=== PATIENT | male | born 1965 | race African-American/Black ===

== ENCOUNTER 2016-11-17 18:50 | Inpatient (IN) | payer OTHER ==
[~2016-11-17] VITALS: Ht 185.4 cm; Wt 96.6 kg
--- NOTE | 2016-11-17 19:26 | PHYS DOC ---
Past Medical History Past Medical History: Hypertension Past Surgical History: Other Additional Past Surgical Histo: L SHOULDER Alcohol Use: Occasionally Drug Use: None Adult General Chief Complaint Chief Complaint: DIZZY/LIGHT HEADED HPI HPI Patient is a 51 year old male who presents with lightheadedness and some weakness. He states that he feels like he got overheated today he's been out in the heat with his [employer] truck and felt weak in the knees and felt unsteady on his feet states his symptoms started about 1: 30 pm today. He states he hasn't ate anything all day today because he just wasn 't hungry. He denies any headache, neck pain, chest pain, abdominal pain or vomiting. Review of Systems Review of Systems Constitutional: Denies fever or chills [] Eyes: Denies change in visual acuity, redness, or eye pain [] HENT: Denies nasal congestion or sore throat [] Respiratory: Denies cough or shortness of breath [] Cardiovascular: No additional information not addressed in HPI [] GI: Denies abdominal pain, nausea, vomiting, bloody stools or diarrhea [] : Denies dysuria or hematuria [] Musculoskeletal: Denies back pain or joint pain [] Integument: Denies rash or skin lesions [] Neurologic: Denies headache, focal weakness or sensory changes [] Endocrine: Denies polyuria or polydipsia [] Current Medications Current Medications Current Medications Medications (Trade) Dose Ordered Sig/Tree Start Time Stop Time Status Last Admin Dose Admin Ondansetron HCl (Zofran) 4 mg PRN Q8HRS PRN 11/18/16 00:00 11/18/16 23:59 UNV Sodium Chloride 1,000 ml @ 1,000 mls/hr 1X ONCE 11/17/16 21:45 11/17/16 22:44 DC 11/17/16 21:28 1,000 MLS/HR Allergies Allergies Allergies Coded Allergies Type Severity Reaction Last Updated Verified No Known Drug Allergies 11/17/16 No Physical Exam Physical Exam Constitutional: Well developed, well nourished, no acute distress, non-toxic appearance. [] HENT: Normocephalic, atraumatic, bilateral external ears normal, oropharynx moist, no oral exudates, nose normal. [] Eyes: PERRLA, EOMI, conjunctiva normal, no discharge. [] Neck: Normal range of motion, no tenderness, supple, no stridor. [] Cardiovascular:Heart rate regular rhythm, no murmur [] Lungs & Thorax: Bilateral breath sounds clear to auscultation [] Abdomen: Bowel sounds normal, soft, no tenderness, no masses, no pulsatile masses. [] Skin: Warm, dry, no erythema, no rash. [] Back: No tenderness, no CVA tenderness. [] Extremities: No tenderness, no cyanosis, no clubbing, ROM intact, no edema. [] Neurologic: Alert and oriented X 3, normal motor function, normal sensory function, no focal deficits noted, strength 5 out of 5 bilateral upper and lower extremities, finger-nose intact, no pronator drift, cranial nerves II through XII intact no Nystagmus. [] Psychologic: Affect normal, judgement normal, mood normal. [] Current Patient Data Vital Signs Vital Signs Date Time Temp Pulse Resp B/P (MAP) Pulse Ox O2 Delivery O2 Flow Rate FiO2 11/17/16 19:08 98.2 62 18 154/84 (107) 98 Room Air 98.2 Lab Values Laboratory Tests Test 11/17/16 19:05 11/17/16 19:45 11/17/16 19:51 Sodium Level 140 mmol/L (136-145) Potassium Level 3.6 mmol/L (3.5-5.1) Chloride Level 105 mmol/L (98-107) Carbon Dioxide Level 26 mmol/L (21-32) Anion Gap 9 (6-14) Blood Urea Nitrogen 15 mg/dL (8-26) Creatinine 0.9 mg/dL (0.7-1.3) Estimated GFR (Cockcroft-Gault) 88.3 Glucose Level 115 mg/dL (70-99) H Calcium Level 8.8 mg/dL (8.5-10.1) Magnesium Level 2.1 mg/dL (1.8-2.4) Total Bilirubin 0.5 mg/dL (0.2-1.0) Direct Bilirubin 0.1 mg/dL (0.0-0.2) Aspartate Amino Transferase (AST) 35 U/L (15-37) Alanine Aminotransferase (ALT) 34 U/L (16-63) Alkaline Phosphatase 74 U/L (46-116) Creatine Kinase 670 U/L (39-308) H Creatine Kinase MB (Mass) 4.9 ng/mL (0.0-3.6) H Creatine Kinase MB Relative Index 0.7 % (0-4) Troponin I Quantitative < 0.017 ng/mL (0.000-0.055) BI-Uvu-V-Type Natriuretic Peptide 5 pg/mL (0-124) Total Protein 7.8 g/dL (6.4-8.2) Albumin 4.0 g/dL (3.4-5.0) Thyroid Stimulating Hormone (TSH) 1.641 uIU/mL (0.358-3.74) White Blood Count 6.4 x10^3/uL (4.0-11.0) Red Blood Count 4.39 x10^6/uL (4.30-5.70) Hemoglobin 14.3 g/dL (13.0-17.5) Hematocrit 42.0 % (39.0-53.0) Mean Corpuscular Volume 96 fL (79-100) Mean Corpuscular Hemoglobin 33 pg (25-35) Mean Corpuscular Hemoglobin Concent 34 g/dL (31-37) Red Cell Distribution Width 12.8 % (11.5-14.5) Platelet Count 184 x10^3/uL (140-400) Neutrophils (%) (Auto) 48 % (31-73) Lymphocytes (%) (Auto) 37 % (24-48) Monocytes (%) (Auto) 11 % (0-9) H Eosinophils (%) (Auto) 4 % (0-3) H Basophils (%) (Auto) 1 % (0-3) Neutrophils # (Auto) 3.1 x10^3uL (1.8-7.7) Lymphocytes # (Auto) 2.4 x10^3/uL (1.0-4.8) Monocytes # (Auto) 0.7 x10^3/uL (0.0-1.1) Eosinophils # (Auto) 0.2 x10^3/uL (0.0-0.7) Basophils # (Auto) 0.0 x10^3/uL (0.0-0.2) Urine Collection Type Unknown Urine Color Yellow Urine Clarity Clear Urine pH 5.5 Urine Specific [place] >=1.030 Urine Protein Negative mg/dL (NEG-TRACE) Urine Glucose (UA) Negative mg/dL (NEG) Urine Ketones (Stick) Negative mg/dL (NEG) Urine Blood Negative (NEG) Urine Nitrite Negative (NEG) Urine Bilirubin Negative (NEG) Urine Urobilinogen Dipstick 1.0 mg/dL (0.2 mg/dL) Urine Leukocyte Esterase Negative (NEG) Urine RBC Occ /HPF (0-2) Urine WBC 0 /HPF (0-4) Urine Squamous Epithelial Cells Few /LPF Urine Bacteria 0 /HPF (0-FEW) Urine Mucus Marked /LPF Laboratory Tests 11/17/16 19:45 Laboratory Tests 11/17/16 19:05 EKG EKG EKG shows sinus rhythm with a rate of [address] elevations, T-wave inversions noted in lead 3, left axis deviation, QTC 383 ms, as interpreted by me. Radiology/Procedures Radiology/Procedures View chest x-ray did not show any focal consolidations, bony abnormality, pneumothorax, as interpreted [facility] [address] [place] [address] IMAGING REPORT Signed PATIENT: HARSHAD BENDER ACCOUNT: [id number] : 1965 LOCATION: ER AGE: 51 SEX: M EXAM STATUS: REG ER ORD. PHYSICIAN: RAYMOND HERNANDEZ MD REASON: dizziness PROCEDURE: CT HEAD WO CONTRAST CT Head W/O Contrast: History: DIZZINESS Comparison: none Axial images were obtained without contrast. The steward and white matter appears normal and symmetrical for the patients age. There is no mass effect, extraaxial fluid collections or hydrocephalus. There is no gross bleed. There is no focal loss of steward-white matter distinction to suggest acute ischemia, i.e. stroke. There is air within the cavernous sinus bilaterally. Impression: Air in the cavernous sinus bilaterally is nonspecific. In the absence of trauma or headache this is likely secondary to air from IV placement. Clinical correlation suggested. PQRS Compliance Statement: One or more of the following individualized dose reduction techniques were utilized for this examination: 1. Automated exposure control 2. Adjustment of the mA and/or kV according to patient size 3. Use of iterative reconstruction technique Electronically signed by: Joel Galaviz III, MD (11/17/2016 11:40 PM) [facility] DICTATED and SIGNED BY: JOEL GALAVIZ III, MD DATE: 11/17/16 [id number] CC: RAYMOND HERNANDEZ MD; DARWIN SHOOK MD ~ Impressions: Dizziness Course & Med Decision Making Course & Med Decision Making Pertinent Labs and Imaging studies reviewed. (See chart for details) Patient's labs, chest x-ray, EKG all nonacute. Patient is a 2 L of normal saline and when trying to ambulate he has to stop secondary to dizziness and old on his something at times. Does not have any nystagmus started at 1:30 PM. I spoke with with neurology who recommends MRI of his brain. If this is positive for acute stroke or thrombosis then he will need to be transferred to a stroke center otherwise he can be admitted here. Spoke with hospitalist regarding admission for dizziness and the fact of consult neurology. He is in stable condition this time. He is outside of any window for TPA since he did present to the ER greater than 4.5 hours after his symptoms started. Dragon Disclaimer Dragon Disclaimer This electronic medical record was generated, in whole or in part, using a voice recognition dictation system. Departure Departure Impression: Primary Impression: Dizziness Disposition: 01 HOME, SELF-CARE Condition: STABLE Patient Instructions: Dizziness Additional Instructions: Your chest x-ray, EKG, lab work did not show any acute abnormalities. You received 2 L of fluids and to your veins. Her symptoms have improved substantially. You might have just been dehydrated. He can always use some Gatorade in addition to water rinses hot outside. Return ER for dizziness, inability to walk, severe weakness, or other concerns. RAYMOND HERNANDEZ MD Nov 17, 2016 19:26
[2016-11-17 19:42] LABS: CALCIUM 8.8 mg/dL (8.5-10.1); CREATININE 0.9 mg/dL (0.7-1.3); GFR 88.3; POTASSIUM 3.6 mmol/L (3.5-5.1)
[2016-11-17] MEDS ORDERED: IV NORMAL SALINE 1000ML BAG 1,000 ML IV ONE ×2 (19:45→21:45)
[2016-11-17 19:52] LABS: CKMB MASS 4.9 ng/mL (0.0-3.6)
[2016-11-17 19:53] LABS: DIRECT BILIRUBIN 0.1 mg/dL (0.0-0.2); MAGNESIUM 2.1 mg/dL (1.8-2.4); TOTAL BILIRUBIN 0.5 mg/dL (0.2-1.0); TOTAL PROTEIN 7.8 g/dL (6.4-8.2)
[2016-11-17 19:57] LABS: BASO % 1 % (0-3); EOS % 4 % (0-3); HEMOGLOBIN 14.3 g/dL (13.0-17.5); LYMPH # 2.4 x10^3/uL (1.0-4.8); LYMPH % 37 % (24-48); MEAN CORPUSCULAR HEMOGLOBIN 33 pg (25-35); MEAN CORPUSCULAR HGB CONC 34 g/dL (31-37); MEAN CORPUSCULAR VOLUME 96 fL (79-100); MONO % 11 % (0-9); NEUT % 48 % (31-73); PLATELET COUNT 184 x10^3/uL (140-400); RED BLOOD COUNT 4.39 x10^6/uL (4.30-5.70); RED CELL DISTRIBUTION WIDTH 12.8 % (11.5-14.5); WHITE BLOOD COUNT 6.4 x10^3/uL (4.0-11.0)
[2016-11-17 20:02] LABS: BILIRUBIN,URINE NEGATIVE (NEG); GLUCOSE,URINE NEGATIVE (NEG); NITRITE,URINE NEGATIVE (NEG); PH,URINE 5.5; PROTEIN,URINE NEGATIVE (NEG-TRACE)
[2016-11-17 20:19] LABS: RBC,URINE OCC /HPF (0-2); WBC,URINE 0 /HPF (0-4)
[2016-11-17 20:20] LABS: BACTERIA,URINE 0 /HPF (0-FEW); SQUAMOUS EPITHELIAL CELL,UR FEW /LPF
--- NOTE | 2016-11-17 23:43 | RAD ---
CT Head W/O Contrast: History: DIZZINESS Comparison: none Axial images were obtained without contrast. The steward and white matter appears normal and symmetrical for the patients age. There is no mass effect, extraaxial fluid collections or hydrocephalus. There is no gross bleed. There is no focal loss of steward-white matter distinction to suggest acute ischemia, i.e. stroke. There is air within the cavernous sinus bilaterally. Impression: Air in the cavernous sinus bilaterally is nonspecific. In the absence of trauma or headache this is likely secondary to air from IV placement. Clinical correlation suggested. PQRS Compliance Statement: One or more of the following individualized dose reduction techniques were utilized for this examination: 1. Automated exposure control 2. Adjustment of the mA and/or kV according to patient size 3. Use of iterative reconstruction technique Electronically signed by: Aric Garcia III, MD (11/17/2016 11:40 PM) [facility]
[2016-11-18] VITALS (8 sets, daily range): BP systolic 122–139; BP diastolic 71–90
[2016-11-18] MEDS ORDERED: GADOBUTROL 7.5 MMOL/7.5 ML VIAL IV ONE (01:00)
[2016-11-18] MEDS ORDERED: GADOBUTROL 10 MMOL/10 ML VIAL IV ONE (01:00)
--- NOTE | 2016-11-18 01:53 | RAD ---
BRAIN MRA, WITHOUT CONTRAST: Clinical Indication: C/O DIZZYNESS WITH LIGHTHEADNESS. Comparison: CT head without contrast, prior day. Technique: 3D [id number] 2 slab imaging of the brain was performed, without contrast. 3-D Maximum intensity reconstruction was performed. Findings: There is signal dropout artifact due to air in the cavernous sinuses. Distal internal carotid arteries are patent. Anterior circulation is intact. The basilar artery is normal. Distal vertebral arteries are relatively codominant. Posterior circulation is intact. No convincing intracranial aneurysm. IMPRESSION: Normal MRA brain. Electronically signed by: Nimesh Aquino MD (11/18/2016 1:50 AM) [id number]
--- NOTE | 2016-11-18 02:11 | RAD ---
MRI BRAIN WITH AND WITHOUT CONTRAST History: Dizziness and lightheadedness. Comparison: CT head without contrast, prior day. Technique: Multiplanar multi pulse sequence images of the brain were obtained. There are sagittal T1, axial T1 with and without gadolinium, FLAIR, T2, diffusion-weighted, coronal T1 with gadolinium, and axial T2*. 7.5 cc of Gadavist intravenous contrast were used. Findings: There is no restricted diffusion. The CSF pathways and ventricles are within normal limits. There is CSF artifact on the T2 FLAIR sequence. Tiny focus of increased T2 FLAIR signal near the anterior limb of the left internal capsule, nonspecific. There is no mass effect, midline shift, extra-axial fluid collection, or evidence of hemorrhage. There is no abnormal postcontrast enhancement. The visualized vascular flow voids appear normal. The orbital structures are intact. There is fluid signal in the left mastoid air cells. Right maxillary sinus mucous retention cyst or polyp. Mild mucosal thickening bilateral maxillary, bilateral ethmoid, and bilateral sphenoid sinuses. No air-fluid level. No cerebellar tonsillar ectopia. IMPRESSION: There is no acute intracranial abnormality. Electronically signed by: Nimesh Aquino MD (11/18/2016 2:08 AM) [facility]
--- NOTE | 2016-11-18 04:09 | ACF ---
Admission Forms Criteria DIZZINESS Clinical Indications for Admission to Inpatient Care (Place 'X' for any and all applicable criteria): Admission is indicated for ANY ONE of the following(1)(2)(3)(4): [X]I. Inpatient admission required rather than observation care (Also use Dizziness: Observation Care as appropriate) because of ANY ONE of the following: [ ]a) Hemodynamic instability that is severe or persistent [ ]b) Signs or symptoms that are severe or persistent (eg, vomit, orthostasis, inability to ambulate) [ ]c) Cardiac arrhythmias of immediate concern [ ]d) Severe (new) neurologic findings requiring inpatient care as indicated by ANY ONE of the following(6)(7): [ ]1) Cerebral bleeding, ischemia, or vasospasm(8)(9) [ ]2) Increased intracranial pressure or hydrocephalus(10)(11)(12) [ ]3) Papilledema [ ]4) Cerebral edema [ ]5) Mass effect on CT scan [ ]e) Continuous IV infusion of anticoagulation, platelet inhibitor, vasoactive, or antiarrhythmic medication [ ]f) Cerebral bleeding, hydrocephalus, or vasospasm monitoring(14) [ ]g) Increased intracranial pressure or cerebral edema monitoring [ ]h) Vomiting that is severe or persistent [X]i) Other condition, treatment or monitoring requiring inpatient admission [ ]II. A suspected etiology that requires admission for treatment [ ]III. Acute bacterial labyrinthitis [ ]IV. Cerebellar, brainstem, or cerebral ischemia or hemorrhage (5) Extended stay beyond goal length of stay may be needed for evaluating and treating a specific cause of dizziness, including(32) [ ]a) Head injury (Also use Traumatic Brain Injury, Nonsurgical Treatment guideline) [ ]b) New-onset vertebrobasilar vascular insufficiency [ ]c) Acute Meniere disease with intractable symptoms [ ]d) Cardiac arrhythmias or conduction defects [ ]e) Acute neurologic event causing dizziness [ ]f) Myocardial ischemia [ ]g) Acute bacterial labyrinthitis. [ ]h) Severe acute vestibular neuronitis The original [employer] [facility] content created by [employer] has been revised. The portions of the content which have been revised are identified through the use of italic text or in bold, and [facility] [facility] [employer] has neither reviewed nor approved the modified material. All other unmodified content is copyright [facility]. Please see references footnoted in the original [facility] edition 2016 Admission Criteria Met?: Yes ARUNA FARRIS Nov 18, 2016 04:09
[2016-11-18] MEDS ORDERED: ACETAMINOPHEN 325 MG TABLET. PO PRN ×2 (04:15→10:00)
--- NOTE | 2016-11-18 04:23 | RAD ---
MRA OF THE NECK WITH AND WITHOUT CONTRAST Clinical Indication: DIZZINESS and lightheadedness Comparison: None. Technique: Multisequential imaging of the neck was performed, before and after the administration of IV contrast and maximum intensity projection was performed for an MRA of the neck with and without contrast. 17.5 cc Gadavist IV contrast were used. RS Compliance Statement - Stenosis calculations for CT, MR and conventional angiography are based upon measurement of the distal ICA diameter in accordance with the NASCET methodology. Stenosis calculations for carotid ultrasound studies are derived from validated velocity criteria which are known to correlate with the NASCET methodology. Findings: Study is nondiagnostic for evaluation of the common carotid arteries and proximal internal carotid arteries. There is loss of signal on the postcontrast images. The 2-D [id number] images suggest that there may be stenosis at the origin of the internal carotid arteries bilaterally. The distal internal carotid arteries are patent. The vertebral arteries are patent. IMPRESSION: Limited exam. Please see above discussion. Electronically signed by: Nimesh Aquino MD (11/18/2016 4:20 AM) [facility]
[2016-11-18 05:38] LABS: BASO # 0.1 x10^3/uL (0.0-0.2); BASO % 1 % (0-3); EOS % 5 % (0-3); HEMATOCRIT 42.8 % (39.0-53.0); HEMOGLOBIN 14.3 g/dL (13.0-17.5); LYMPH % 37 % (24-48); MEAN CORPUSCULAR HEMOGLOBIN 32 pg (25-35); MEAN CORPUSCULAR HGB CONC 33 g/dL (31-37); MEAN CORPUSCULAR VOLUME 97 fL (79-100); MONO % 11 % (0-9); NEUT % 46 % (31-73); PLATELET COUNT 169 x10^3/uL (140-400); RED BLOOD COUNT 4.43 x10^6/uL (4.30-5.70); RED CELL DISTRIBUTION WIDTH 12.9 % (11.5-14.5); WHITE BLOOD COUNT 5.5 x10^3/uL (4.0-11.0)
[2016-11-18 05:47] LABS: CALCIUM 7.9 mg/dL (8.5-10.1); GFR 94.6; POTASSIUM 3.5 mmol/L (3.5-5.1)
[2016-11-18] MEDS ORDERED: AMLO5TAB2 PO (08:13)
[2016-11-18] MEDS ORDERED: ESOM20TA PO (08:13)
--- NOTE | 2016-11-18 08:24 | EKG ---
[facility] [address] [place] [address] Test Date: 2016-11-17 Test Time: 19:18:52 Pat Name: HARSHAD BENDER Department: Room: 205 1 Gender: M [employer]: : 1965 Requested By: RAYMOND HERNANDEZ Order Number: [id number] Reading MD: Fahad Sanchez Measurements Intervals [place] Rate: 56 P: 26 NC: 208 QRS: -10 QRSD: 100 T: 21 QT: 394 QTc: 383 Interpretive Statements SINUS RHYTHM LEFTWARD AXIS OTHERWISE NORMAL ECG Electronically Signed On 11-26-2016 14:53:50 CDT by Fahad Sanchez
--- NOTE | 2016-11-18 08:51 | RAD ---
Indication dizziness. Suspect CVA. Protocol exam. A single view of the chest was obtained and is compared to an examination May 10, 2009. The heart and pulmonary vessels appear normal. The lungs are clear of acute infiltrates. There is no significant pleural fluid. There is no pneumothorax. The bony structures appear grossly intact. IMPRESSION: No acute or focal process seen in chest
[2016-11-18] MEDS ORDERED: IV NORMAL SALINE 1000ML BAG 1,000 ML IV ONE (10:00)
[2016-11-18] MEDS ORDERED: ONDANSETRON PF 4 MG/2 ML VIAL. IV PRN ×2 (10:00)
[2016-11-18] MEDS ORDERED: hydrALAZINE 20 MG/ML VIAL. IVP PRN (10:00)
[2016-11-18] MEDS ORDERED: ALBUTEROL SULFATE 2.5 MG/3 ML NEBU. NEB PRN (10:00)
[2016-11-18] MEDS ORDERED: HYDROcodone/APAP 5/325MG 1 TAB TABLET PO PRN (10:00)
--- NOTE | 2016-11-18 12:36 | PDOC1 ---
History and Physical Date of Admission Date of Admission 11/18/2016 Identification/Chief Complaint Chief Complaint Dizziness Problems: History of Present Illness History of Present Illness A 51-year-old male patient with prior history of hypertension presented to the ER with complaints of dizziness symptoms started yesterday evening by occupation patient works in a [employer] most of the times he stays outside. He was dehydrated is today feeling dizzy symptoms persisted for a long time denies any syncope or palpitations. He denies any headache nausea vomiting. Patient present to the ER due to intractable symptoms his symptoms improved with IV hydration. He he did not eat anything today in the evening with the dehydration symptoms got worse. Past medical history hypertension Past surgical history left shoulder surgery Family history no sudden cardiac deaths Social history Works in [employer], no smoking occasional drinks alcohol Allergies NKDA Current Problem List Problem List Problems Medical Problems: (1) Dizziness Status: Acute Current Medications Current Medications Current Medications Medications (Trade) Dose Ordered Sig/Tree Start Time Stop Time Status Last Admin Dose Admin Acetaminophen (Tylenol) 325 mg PRN Q6HRS PRN 11/18/16 10:00 Acetaminophen/ Hydrocodone Bitart (Lortab 5/325) 1 tab PRN Q6HRS PRN 11/18/16 10:00 Albuterol Sulfate (Ventolin Neb Soln) 2.5 mg PRN Q4HRS PRN 11/18/16 10:00 Gadobutrol (Gadavist) 10 mmol 1X ONCE 11/18/16 01:00 11/18/16 01:01 DC 11/18/16 01:40 10 MMOL Hydralazine HCl (Apresoline) 10 mg PRN Q4HRS PRN 11/18/16 10:00 Ondansetron HCl (Zofran) 4 mg PRN Q8HRS PRN 11/18/16 10:00 Sodium Chloride 1,000 ml @ 75 mls/hr 1X ONCE 11/18/16 10:00 11/18/16 23:19 11/18/16 10:26 75 MLS/HR Allergies Allergies Allergies Coded Allergies Type Severity Reaction Last Updated Verified No Known Drug Allergies 11/17/16 No ROS Review of System CONSTITUTIONAL: No fever or chills EYES: No recent changes SKIN: No rash or itching CARDIOVASCULAR: No chest pain, syncope, palpitations, or edema RESPIRATORY: No SOB or cough GASTROINTESTINAL: No nausea, vomiting or abdominal pain NEUROLOGICAL: No headaches or weakness ENDOCRINE: No cold or heat intolerance GENITOURINARY: No urgency or frequency of urination MUSCULOSKELETAL: No back pain or joint pain LYMPHATICS: No enlarged lymph nodes PSYCHIATRIC: No anxiety or depression Physical Exam Physical Exam GEN.: No apparent distress. Alert and oriented. HEENT: Head is normocephalic, atraumatic NECK: Supple. LUNGS: Clear to auscultation. HEART: RRR, S1, S2 present. Peripheral pulses intact ABDOMEN: Soft, nontender. Positive bowel sounds. EXTREMITIES: Without any cyanosis. NEUROLOGIC: Normal speech, normal tone PSYCHIATRIC: Normal affect, normal mood. SKIN: No ulcerations Vitals Vitals Vital Signs Date Time Temp Pulse Resp B/P (MAP) Pulse Ox O2 Delivery O2 Flow Rate FiO2 11/18/16 11:00 97.8 53 18 126/81 (96) 97 Room Air 97.8 Labs Labs Laboratory Tests Test 11/17/16 19:05 11/17/16 19:45 11/17/16 19:51 11/18/16 04:10 Sodium Level 140 mmol/L (136-145) 143 mmol/L (136-145) Potassium Level 3.6 mmol/L (3.5-5.1) 3.5 mmol/L (3.5-5.1) Chloride Level 105 mmol/L (98-107) 107 mmol/L (98-107) Carbon Dioxide Level 26 mmol/L (21-32) 30 mmol/L (21-32) Anion Gap 9 (6-14) 6 (6-14) Blood Urea Nitrogen 15 mg/dL (8-26) 10 mg/dL (8-26) Creatinine 0.9 mg/dL (0.7-1.3) 1.0 mg/dL (0.7-1.3) Estimated GFR (Cockcroft-Gault) 88.3 94.6 Glucose Level 115 mg/dL (70-99) 146 mg/dL (70-99) Calcium Level 8.8 mg/dL (8.5-10.1) 7.9 mg/dL (8.5-10.1) Magnesium Level 2.1 mg/dL (1.8-2.4) Total Bilirubin 0.5 mg/dL (0.2-1.0) Direct Bilirubin 0.1 mg/dL (0.0-0.2) Aspartate Amino Transf (AST/SGOT) 35 U/L (15-37) Alanine Aminotransferase (ALT/SGPT) 34 U/L (16-63) Alkaline Phosphatase 74 U/L (46-116) Creatine Kinase 670 U/L (39-308) Creatine Kinase MB (Mass) 4.9 ng/mL (0.0-3.6) Creatine Kinase MB Relative Index 0.7 % (0-4) Troponin I Quantitative < 0.017 ng/mL (0.000-0.055) YY-Tnw-[id number]-Type Natriuretic Peptide 5 pg/mL (0-124) Total Protein 7.8 g/dL (6.4-8.2) Albumin 4.0 g/dL (3.4-5.0) Thyroid Stimulating Hormone (TSH) 1.641 uIU/mL (0.358-3.74) White Blood Count 6.4 x10^3/uL (4.0-11.0) 5.5 x10^3/uL (4.0-11.0) Red Blood Count 4.39 x10^6/uL (4.30-5.70) 4.43 x10^6/uL (4.30-5.70) Hemoglobin 14.3 g/dL (13.0-17.5) 14.3 g/dL (13.0-17.5) Hematocrit 42.0 % (39.0-53.0) 42.8 % (39.0-53.0) Mean Corpuscular Volume 96 fL (79-100) 97 fL (79-100) Mean Corpuscular Hemoglobin 33 pg (25-35) 32 pg (25-35) Mean Corpuscular Hemoglobin Concent 34 g/dL (31-37) 33 g/dL (31-37) Red Cell Distribution Width 12.8 % (11.5-14.5) 12.9 % (11.5-14.5) Platelet Count 184 x10^3/uL (140-400) 169 x10^3/uL (140-400) Neutrophils (%) (Auto) 48 % (31-73) 46 % (31-73) Lymphocytes (%) (Auto) 37 % (24-48) 37 % (24-48) Monocytes (%) (Auto) 11 % (0-9) 11 % (0-9) Eosinophils (%) (Auto) 4 % (0-3) 5 % (0-3) Basophils (%) (Auto) 1 % (0-3) 1 % (0-3) Neutrophils # (Auto) 3.1 x10^3uL (1.8-7.7) 2.5 x10^3uL (1.8-7.7) Lymphocytes # (Auto) 2.4 x10^3/uL (1.0-4.8) 2.0 x10^3/uL (1.0-4.8) Monocytes # (Auto) 0.7 x10^3/uL (0.0-1.1) 0.6 x10^3/uL (0.0-1.1) Eosinophils # (Auto) 0.2 x10^3/uL (0.0-0.7) 0.3 x10^3/uL (0.0-0.7) Basophils # (Auto) 0.0 x10^3/uL (0.0-0.2) 0.1 x10^3/uL (0.0-0.2) Urine Collection Type Unknown Urine Color Yellow Urine Clarity Clear Urine pH 5.5 Urine Specific [place] >=1.030 Urine Protein Negative mg/dL (NEG-TRACE) Urine Glucose (UA) Negative mg/dL (NEG) Urine Ketones (Stick) Negative mg/dL (NEG) Urine Blood Negative (NEG) Urine Nitrite Negative (NEG) Urine Bilirubin Negative (NEG) Urine Urobilinogen Dipstick 1.0 mg/dL (0.2 mg/dL) Urine Leukocyte Esterase Negative (NEG) Urine RBC Occ /HPF (0-2) Urine WBC 0 /HPF (0-4) Urine Squamous Epithelial Cells Few /LPF Urine Bacteria 0 /HPF (0-FEW) Urine Mucus Marked /LPF Laboratory Tests Test 11/17/16 19:05 11/17/16 19:45 11/17/16 19:51 11/18/16 04:10 Sodium Level 140 mmol/L (136-145) 143 mmol/L (136-145) Potassium Level 3.6 mmol/L (3.5-5.1) 3.5 mmol/L (3.5-5.1) Chloride Level 105 mmol/L (98-107) 107 mmol/L (98-107) Carbon Dioxide Level 26 mmol/L (21-32) 30 mmol/L (21-32) Anion Gap 9 (6-14) 6 (6-14) Blood Urea Nitrogen 15 mg/dL (8-26) 10 mg/dL (8-26) Creatinine 0.9 mg/dL (0.7-1.3) 1.0 mg/dL (0.7-1.3) Estimated GFR (Cockcroft-Gault) 88.3 94.6 Glucose Level 115 mg/dL (70-99) 146 mg/dL (70-99) Calcium Level 8.8 mg/dL (8.5-10.1) 7.9 mg/dL (8.5-10.1) Magnesium Level 2.1 mg/dL (1.8-2.4) Total Bilirubin 0.5 mg/dL (0.2-1.0) Direct Bilirubin 0.1 mg/dL (0.0-0.2) Aspartate Amino Transf (AST/SGOT) 35 U/L (15-37) Alanine Aminotransferase (ALT/SGPT) 34 U/L (16-63) Alkaline Phosphatase 74 U/L (46-116) Creatine Kinase 670 U/L (39-308) Creatine Kinase MB (Mass) 4.9 ng/mL (0.0-3.6) Creatine Kinase MB Relative Index 0.7 % (0-4) Troponin I Quantitative < 0.017 ng/mL (0.000-0.055) [place]-Esi-D-Type Natriuretic Peptide 5 pg/mL (0-124) Total Protein 7.8 g/dL (6.4-8.2) Albumin 4.0 g/dL (3.4-5.0) Thyroid Stimulating Hormone (TSH) 1.641 uIU/mL (0.358-3.74) White Blood Count 6.4 x10^3/uL (4.0-11.0) 5.5 x10^3/uL (4.0-11.0) Red Blood Count 4.39 x10^6/uL (4.30-5.70) 4.43 x10^6/uL (4.30-5.70) Hemoglobin 14.3 g/dL (13.0-17.5) 14.3 g/dL (13.0-17.5) Hematocrit 42.0 % (39.0-53.0) 42.8 % (39.0-53.0) Mean Corpuscular Volume 96 fL (79-100) 97 fL (79-100) Mean Corpuscular Hemoglobin 33 pg (25-35) 32 pg (25-35) Mean Corpuscular Hemoglobin Concent 34 g/dL (31-37) 33 g/dL (31-37) Red Cell Distribution Width 12.8 % (11.5-14.5) 12.9 % (11.5-14.5) Platelet Count 184 x10^3/uL (140-400) 169 x10^3/uL (140-400) Neutrophils (%) (Auto) 48 % (31-73) 46 % (31-73) Lymphocytes (%) (Auto) 37 % (24-48) 37 % (24-48) Monocytes (%) (Auto) 11 % (0-9) 11 % (0-9) Eosinophils (%) (Auto) 4 % (0-3) 5 % (0-3) Basophils (%) (Auto) 1 % (0-3) 1 % (0-3) Neutrophils # (Auto) 3.1 x10^3uL (1.8-7.7) 2.5 x10^3uL (1.8-7.7) Lymphocytes # (Auto) 2.4 x10^3/uL (1.0-4.8) 2.0 x10^3/uL (1.0-4.8) Monocytes # (Auto) 0.7 x10^3/uL (0.0-1.1) 0.6 x10^3/uL (0.0-1.1) Eosinophils # (Auto) 0.2 x10^3/uL (0.0-0.7) 0.3 x10^3/uL (0.0-0.7) Basophils # (Auto) 0.0 x10^3/uL (0.0-0.2) 0.1 x10^3/uL (0.0-0.2) Urine Collection Type Unknown Urine Color Yellow Urine Clarity Clear Urine pH 5.5 Urine Specific [place] >=1.030 Urine Protein Negative mg/dL (NEG-TRACE) Urine Glucose (UA) Negative mg/dL (NEG) Urine Ketones (Stick) Negative mg/dL (NEG) Urine Blood Negative (NEG) Urine Nitrite Negative (NEG) Urine Bilirubin Negative (NEG) Urine Urobilinogen Dipstick 1.0 mg/dL (0.2 mg/dL) Urine Leukocyte Esterase Negative (NEG) Urine RBC Occ /HPF (0-2) Urine WBC 0 /HPF (0-4) Urine Squamous Epithelial Cells Few /LPF Urine Bacteria 0 /HPF (0-FEW) Urine Mucus Marked /LPF VTE Prophylaxis Ordered VTE Prophylaxis Devices: Yes VTE Pharmacological Prophylaxi: No Assessment/Plan Assessment/Plan Dizziness possible due to heat exhaustion Dehydration Hypertension stable Sinus bradycardia asymptomatic Plan Patient was evaluated by ER physician and ordered multiple imaging studies, negative for any COMMISSIONS ANALYST related findings. Most of his symptoms are related to dehydration and heat exhaustion. Patient had mild sinus bradycardia, EKG did not show any acute findings I recommended him to get an echocardiogram however due to weekend patient would like to get it as an outpatient. Continue IV hydration with normal saline Original resume medication Encouraged oral intake I asked patient to walk with physical therapy or staff nurse, also ordered a orthostatic blood pressures. Discharge planning based on patient's symptomatic improvement Neurology has been consulted in the ER awaiting response His labs and images reviewed. ASHLEY HUMPHREYS MD Nov 18, 2016 12:36
[2016-11-18] MEDS ORDERED: amLODIPine BESYLATE 5 MG TABLET PO SCH (13:00)
--- NOTE | 2016-11-18 15:39 | PDOC2 ---
NEUROLOGY CONSULT Date of Admission Date of Admission DATE: 11/18/16 TIME: 15:29 Reason for Consult Reason for Consult: IMPRESSION: Ataxia, Gait instability. Dizziness. Headache HTN Obesity. No evidence of acute CVA or brain tumor this time. RECOMMENDATIONS/PLAN: Treat medical diseases. lab: see orders. Meclizine 12.5 mg - 25 mg tid. OT/PT. HISTORY OF THE PRESENT ILLNESS: 51-y-old AA male patent with Hx of HTN. He developed symptoms of dizziness, light headedness, unsteadiness, gait instability and ataxic gait unable to stand normally while in his [employer] trunk in heat per his report, so he came to the ER of [facility]. PAST MEDICAL HISTORY: Please see above. PAST SURGERY HISTORY: Shoulder surgery. ALLERGY: Reviewed. MEDICATIONS: Refer to [facility] FAMILY HISTORY: Non contributory. SOCIAL HISTORY: Lives at home. Denies illicit drug use. REVIEW OF SYSTEMS: Constitutional: No malnutrition, weight loss, cachexia. Head: No traumatic brain or head injury. Skin: No edema, or rash. Ear: No infection. Eyes: No vision loss or color blindness. Nose: No bleeding or purulent discharges. Hearing: No hearing decrease. Neck: No injury. Cardiac: HTN Pulmonary: No COPD. GI: No GI ulcer, GI bleeding. Urinary/genital: No dysuria, incontinence, urinary retention. Endocrinologic: No cousin face, craniofacial dysmorphism, polydactyly Skeletomuscular: No muscular atrophy, deformity. Neurological: see HP. Psychiatric: Denies drug use/abuse. Otherwise, not [id number] review of systems. PHYSICAL EXAMINATION: General appearance is in subacute distress. HEENT: Normocephalic and nontraumatic. Eyes, nose, ears, and throat are unremarkable. Neck is supple. No lymphadenopathy. No bruits are heard over the carotid artery. No crepitus. Cardiovascular: S1, S2, regular rate and rhythm. Pulmonary: Clear to auscultation bilaterally. Abdomen: Bowel sounds are positive. Abdomen is soft, nontender, and nondistended. Extremities: No rash, lesions, or edema. No restriction of range of motion NEUROLOGICAL EXAMINATION: Alert Oriented to time, place and person. PERRL. EOMI. CN: no focal findings. Muscle tone: within normal. Muscle strength: 5 DTR: 2 Plantar reflex: Flexor response bilaterally Gait: not examined in bed. Sensory exam: no abnormal findings. No cerebellar signs elicited. F-T-N test accurate. Current Medications Current Medications Current Medications Sodium Chloride 1,000 ml @ 1,000 mls/hr 1X ONCE IV Last administered on 19:41; Start 11/17/16 at 19:45; Stop 11/17/16 at 20:44; Status DC Sodium Chloride 1,000 ml @ 1,000 mls/hr 1X ONCE IV Last administered on 21:28; Start 11/17/16 at 21:45; Stop 11/17/16 at 22:44; Status DC Ondansetron HCl (Zofran) 4 mg PRN Q8HRS PRN IV NAUSEA/VOMITING; Start 11/18/16 at 00:00; Stop 11/18/16 at 23:59 Gadobutrol (Gadavist) 7.5 mmol 1X ONCE IV ; Start 11/18/16 at 01:00; Stop 11/18 at 01:01; Status DC Gadobutrol (Gadavist) 10 mmol 1X ONCE IV Last administered on 11/18/16 01:40 ; Start 11/18/16 at 01:00; Stop 11/18/16 at 01:01; Status DC Acetaminophen (Tylenol) 650 mg PRN Q6HRS PRN PO HEADACHE Last administered on 04:12; Start 11/18/16 at 04:15 Acetaminophen (Tylenol) 325 mg PRN Q6HRS PRN PO MILD PAIN / TEMP; Start at 10:00 Acetaminophen/ Hydrocodone Bitart (Lortab 5/325) 1 tab PRN Q6HRS PRN PO MODERATE TO SEVERE PAIN; Start 11/18/16 at 10:00 Hydralazine HCl (Apresoline) 10 mg PRN Q4HRS PRN IVP ELEVATED BP, SEE COMMENTS ; Start 11/18/16 at 10:00 Ondansetron HCl (Zofran) 4 mg PRN Q8HRS PRN IV NAUSEA/VOMITING; Start 11/18/16 at 10:00 Albuterol Sulfate (Ventolin Neb Soln) 2.5 mg PRN Q4HRS PRN NEB SHORTNESS OF BREATH; Start 11/18/16 at 10:00 Sodium Chloride 1,000 ml @ 75 mls/hr 1X ONCE IV Last administered on 10:26; Start 11/18/16 at 10:00; Stop 11/18/16 at 23:19 Amlodipine Besylate (Norvasc) 5 mg DAILY PO Last administered on 11/18/16 13: 39; Start 11/18/16 at 13:00 Active Scripts Active Reported Nexium 24Hr (Esomeprazole Magnesium) 20 Mg Tablet.dr 20 Mg PO Amlodipine Besylate 5 Mg Tablet 5 Mg PO DAILY Allergies Allergies: Coded Allergies: No Known Drug Allergies (Unverified , 11/17/16) Vitals VITALS Vital Signs Date Time Temp Pulse Resp B/P (MAP) Pulse Ox O2 Delivery O2 Flow Rate FiO2 11/18/16 14:01 62 139/83 (101) 11/18/16 13:33 Room Air 11/18/16 11:00 97.8 18 97 97.8 Labs Labs Laboratory Tests Test 11/17/16 19:05 11/17/16 19:45 11/17/16 19:51 11/18/16 04:10 Sodium Level 140 mmol/L (136-145) 143 mmol/L (136-145) Potassium Level 3.6 mmol/L (3.5-5.1) 3.5 mmol/L (3.5-5.1) Chloride Level 105 mmol/L (98-107) 107 mmol/L (98-107) Carbon Dioxide Level 26 mmol/L (21-32) 30 mmol/L (21-32) Anion Gap 9 (6-14) 6 (6-14) Blood Urea Nitrogen 15 mg/dL (8-26) 10 mg/dL (8-26) Creatinine 0.9 mg/dL (0.7-1.3) 1.0 mg/dL (0.7-1.3) Estimated GFR (Cockcroft-Gault) 88.3 94.6 Glucose Level 115 mg/dL (70-99) 146 mg/dL (70-99) Calcium Level 8.8 mg/dL (8.5-10.1) 7.9 mg/dL (8.5-10.1) Magnesium Level 2.1 mg/dL (1.8-2.4) Total Bilirubin 0.5 mg/dL (0.2-1.0) Direct Bilirubin 0.1 mg/dL (0.0-0.2) Aspartate Amino Transf (AST/SGOT) 35 U/L (15-37) Alanine Aminotransferase (ALT/SGPT) 34 U/L (16-63) Alkaline Phosphatase 74 U/L (46-116) Creatine Kinase 670 U/L (39-308) Creatine Kinase MB (Mass) 4.9 ng/mL (0.0-3.6) Creatine Kinase MB Relative Index 0.7 % (0-4) Troponin I Quantitative < 0.017 ng/mL (0.000-0.055) DN-Lcr-C-Type Natriuretic Peptide 5 pg/mL (0-124) Total Protein 7.8 g/dL (6.4-8.2) Albumin 4.0 g/dL (3.4-5.0) Thyroid Stimulating Hormone (TSH) 1.641 uIU/mL (0.358-3.74) White Blood Count 6.4 x10^3/uL (4.0-11.0) 5.5 x10^3/uL (4.0-11.0) Red Blood Count 4.39 x10^6/uL (4.30-5.70) 4.43 x10^6/uL (4.30-5.70) Hemoglobin 14.3 g/dL (13.0-17.5) 14.3 g/dL (13.0-17.5) Hematocrit 42.0 % (39.0-53.0) 42.8 % (39.0-53.0) Mean Corpuscular Volume 96 fL (79-100) 97 fL (79-100) Mean Corpuscular Hemoglobin 33 pg (25-35) 32 pg (25-35) Mean Corpuscular Hemoglobin Concent 34 g/dL (31-37) 33 g/dL (31-37) Red Cell Distribution Width 12.8 % (11.5-14.5) 12.9 % (11.5-14.5) Platelet Count 184 x10^3/uL (140-400) 169 x10^3/uL (140-400) Neutrophils (%) (Auto) 48 % (31-73) 46 % (31-73) Lymphocytes (%) (Auto) 37 % (24-48) 37 % (24-48) Monocytes (%) (Auto) 11 % (0-9) 11 % (0-9) Eosinophils (%) (Auto) 4 % (0-3) 5 % (0-3) Basophils (%) (Auto) 1 % (0-3) 1 % (0-3) Neutrophils # (Auto) 3.1 x10^3uL (1.8-7.7) 2.5 x10^3uL (1.8-7.7) Lymphocytes # (Auto) 2.4 x10^3/uL (1.0-4.8) 2.0 x10^3/uL (1.0-4.8) Monocytes # (Auto) 0.7 x10^3/uL (0.0-1.1) 0.6 x10^3/uL (0.0-1.1) Eosinophils # (Auto) 0.2 x10^3/uL (0.0-0.7) 0.3 x10^3/uL (0.0-0.7) Basophils # (Auto) 0.0 x10^3/uL (0.0-0.2) 0.1 x10^3/uL (0.0-0.2) Urine Collection Type Unknown Urine Color Yellow Urine Clarity Clear Urine pH 5.5 Urine Specific [place] >=1.030 Urine Protein Negative mg/dL (NEG-TRACE) Urine Glucose (UA) Negative mg/dL (NEG) Urine Ketones (Stick) Negative mg/dL (NEG) Urine Blood Negative (NEG) Urine Nitrite Negative (NEG) Urine Bilirubin Negative (NEG) Urine Urobilinogen Dipstick 1.0 mg/dL (0.2 mg/dL) Urine Leukocyte Esterase Negative (NEG) Urine RBC Occ /HPF (0-2) Urine WBC 0 /HPF (0-4) Urine Squamous Epithelial Cells Few /LPF Urine Bacteria 0 /HPF (0-FEW) Urine Mucus Marked /LPF Laboratory Tests Test 11/17/16 19:05 11/17/16 19:45 11/17/16 19:51 11/18/16 04:10 Sodium Level 140 mmol/L (136-145) 143 mmol/L (136-145) Potassium Level 3.6 mmol/L (3.5-5.1) 3.5 mmol/L (3.5-5.1) Chloride Level 105 mmol/L (98-107) 107 mmol/L (98-107) Carbon Dioxide Level 26 mmol/L (21-32) 30 mmol/L (21-32) Anion Gap 9 (6-14) 6 (6-14) Blood Urea Nitrogen 15 mg/dL (8-26) 10 mg/dL (8-26) Creatinine 0.9 mg/dL (0.7-1.3) 1.0 mg/dL (0.7-1.3) Estimated GFR (Cockcroft-Gault) 88.3 94.6 Glucose Level 115 mg/dL (70-99) 146 mg/dL (70-99) Calcium Level 8.8 mg/dL (8.5-10.1) 7.9 mg/dL (8.5-10.1) Magnesium Level 2.1 mg/dL (1.8-2.4) Total Bilirubin 0.5 mg/dL (0.2-1.0) Direct Bilirubin 0.1 mg/dL (0.0-0.2) Aspartate Amino Transf (AST/SGOT) 35 U/L (15-37) Alanine Aminotransferase (ALT/SGPT) 34 U/L (16-63) Alkaline Phosphatase 74 U/L (46-116) Creatine Kinase 670 U/L (39-308) Creatine Kinase MB (Mass) 4.9 ng/mL (0.0-3.6) Creatine Kinase MB Relative Index 0.7 % (0-4) Troponin I Quantitative < 0.017 ng/mL (0.000-0.055) ZV-Yqn-M-Type Natriuretic Peptide 5 pg/mL (0-124) Total Protein 7.8 g/dL (6.4-8.2) Albumin 4.0 g/dL (3.4-5.0) Thyroid Stimulating Hormone (TSH) 1.641 uIU/mL (0.358-3.74) White Blood Count 6.4 x10^3/uL (4.0-11.0) 5.5 x10^3/uL (4.0-11.0) Red Blood Count 4.39 x10^6/uL (4.30-5.70) 4.43 x10^6/uL (4.30-5.70) Hemoglobin 14.3 g/dL (13.0-17.5) 14.3 g/dL (13.0-17.5) Hematocrit 42.0 % (39.0-53.0) 42.8 % (39.0-53.0) Mean Corpuscular Volume 96 fL (79-100) 97 fL (79-100) Mean Corpuscular Hemoglobin 33 pg (25-35) 32 pg (25-35) Mean Corpuscular Hemoglobin Concent 34 g/dL (31-37) 33 g/dL (31-37) Red Cell Distribution Width 12.8 % (11.5-14.5) 12.9 % (11.5-14.5) Platelet Count 184 x10^3/uL (140-400) 169 x10^3/uL (140-400) Neutrophils (%) (Auto) 48 % (31-73) 46 % (31-73) Lymphocytes (%) (Auto) 37 % (24-48) 37 % (24-48) Monocytes (%) (Auto) 11 % (0-9) 11 % (0-9) Eosinophils (%) (Auto) 4 % (0-3) 5 % (0-3) Basophils (%) (Auto) 1 % (0-3) 1 % (0-3) Neutrophils # (Auto) 3.1 x10^3uL (1.8-7.7) 2.5 x10^3uL (1.8-7.7) Lymphocytes # (Auto) 2.4 x10^3/uL (1.0-4.8) 2.0 x10^3/uL (1.0-4.8) Monocytes # (Auto) 0.7 x10^3/uL (0.0-1.1) 0.6 x10^3/uL (0.0-1.1) Eosinophils # (Auto) 0.2 x10^3/uL (0.0-0.7) 0.3 x10^3/uL (0.0-0.7) Basophils # (Auto) 0.0 x10^3/uL (0.0-0.2) 0.1 x10^3/uL (0.0-0.2) Urine Collection Type Unknown Urine Color Yellow Urine Clarity Clear Urine pH 5.5 Urine Specific [place] >=1.030 Urine Protein Negative mg/dL (NEG-TRACE) Urine Glucose (UA) Negative mg/dL (NEG) Urine Ketones (Stick) Negative mg/dL (NEG) Urine Blood Negative (NEG) Urine Nitrite Negative (NEG) Urine Bilirubin Negative (NEG) Urine Urobilinogen Dipstick 1.0 mg/dL (0.2 mg/dL) Urine Leukocyte Esterase Negative (NEG) Urine RBC Occ /HPF (0-2) Urine WBC 0 /HPF (0-4) Urine Squamous Epithelial Cells Few /LPF Urine Bacteria 0 /HPF (0-FEW) Urine Mucus Marked /LPF MICHELLE CAMPUZANO MD Nov 18, 2016 15:39
[2016-11-18] MEDS ORDERED: MECLIZINE HCL 12.5 MG TABLET. PO SCH (15:45)
[2016-11-18 16:07] LABS: BARBITURATES NEG (NEG); BENZODIAZEPINES NEG (NEG); CANNABINOIDS NEG (NEG); COCAINE NEG (NEG); METHADONE NEG (NEG); OPIATES NEG (NEG); PHENCYCLIDINE NEG (NEG)
--- NOTE | 2016-12-02 08:11 | PDOC3 ---
Discharge Summary* Date of Discharge: Nov 18, 2016 Admitting Diagnosis Problems Medical Problems: (1) Dizziness Status: Acute Problems: Final Diagnosis Dizziness possible due to heat exhaustion Dehydration Hypertension stable Sinus bradycardia asymptomatic Brief Hospital Course see HP for full details, pt sent home on same day. pt would like to get Echo as out pt. Scheduled Amlodipine Besylate (Amlodipine Besylate), 5 MG PO DAILY, (Reported) Miscellaneous Medications Esomeprazole Magnesium (Nexium 24Hr), 20 MG PO, (Reported) Time Spent Total time spent with patient [] minutes for coordination of care, counseling, and education. ASHLEY HUMPHREYS MD Dec 02, 2016 08:11
== END 2016-11-18 16:55 | disposition home or self-care (01) | DRG 923 ==
LOC: ER 18:50 → 2 NORTH 22:30
PROVIDERS: ADMIT Internal Medicine Hematology & Oncology; ATTEND Internal Medicine Hematology & Oncology
DX: T67.5XXA Heat exhaustion, unspecified, initial encounter (principal); E86.0 Dehydration; E66.9 Obesity, unspecified; I10 Essential (primary) hypertension; R00.1 Bradycardia, unspecified; R27.0 Ataxia, unspecified; R26.81 Unsteadiness on feet; Y93.89 Activity, other specified; Y92.89 Other specified places as the place of occurrence of the external cause; Y99.8 Other external cause status; Z68.28 Body mass index [BMI] 28.0-28.9, adult
CPT/HCPCS: 36415; 70450; 70544; 70549; 70553; 71010; 80048; 80076; 81001; 82553; 83735; 83880; 84443; 84484; 85027; 93005; 94250; 96360; 96361; A9585; G0481; J7030; 99285-25

== ENCOUNTER 2018-07-08 15:09 | Emergency (ER) | payer BC, OTHER ==
[~2018-07-08] VITALS: Ht 185.4 cm; Wt 99.8 kg
[~2018-07-08 15:09] MED LIST: AMLO5TAB10 PO; ESOM20TA PO
[2018-07-08 16:45] VITALS: BP 145/82
--- NOTE | 2018-07-08 17:34 | RAD ---
CT HEAD WO CONTRAST dated 07/08/2018 4:51 PM. Comparison: 11/17/2016 Clinical Indication: FALL AND HIT HEAD NO CONTRAST PREV SENT PAIN Technical factors: Contiguous 5 mm axial images of the head were obtained from the skull base to the vertex. No contrast was administered. One or more of the following individualized dose reduction techniques were utilized for this examination: Automated exposure control, Adjustment of the mA and/or kV according to patient size, Use of iterative reconstruction technique. Findings: Ventricles and sulci are within normal limits for age. No evidence of ventricular shift or mass effect. Brain parenchyma is of normal attenuation. There is no evidence of hemorrhage or extra-axial collection. Visualized paranasal sinuses and mastoid air cells are clear. No acute osseous abnormality. Impression: No evidence of acute intracranial abnormality. Electronically signed by: Eb Ricks MD (07/08/2018 5:31 PM) [id number]
--- NOTE | 2018-07-08 18:12 | PHYS DOC ---
Past Medical History Past Medical History: Hypertension Past Surgical History: Other Additional Past Surgical Histo: L SHOULDER Alcohol Use: Occasionally Drug Use: None Adult General Chief Complaint Chief Complaint: HEAD INJURY/TRAUMA HPI HPI Patient is a 53 year old female with history of hypertension who presents to the ED today complaining of mild posterior head pain that began 4 days ago after he fell down 3 steps. Patient denies any loss of consciousness. He states he hit the back of his head on a concrete wall, patient denies any nausea, denies any vomiting. Denies any vision changes. He states his headache is intermittent and throbbing in nature. Review of Systems Review of Systems Constitutional: Denies fever or chills [] Eyes: Denies change in visual acuity, redness, or eye pain [] HENT: Denies nasal congestion or sore throat [] Respiratory: Denies cough or shortness of breath [] Cardiovascular: No additional information not addressed in HPI [] GI: Denies abdominal pain, nausea, vomiting, bloody stools or diarrhea [] : Denies dysuria or hematuria [] Musculoskeletal: Denies back pain or joint pain [] Integument: Denies rash or skin lesions [] Neurologic: Reports head pain, denies, focal weakness or sensory changes [] All other systems were reviewed and found to be within normal limits, except as documented in this note. Allergies Allergies Allergies Coded Allergies Type Severity Reaction Last Updated Verified No Known Drug Allergies 11/17/16 No Physical Exam Physical Exam Constitutional: Well developed, well nourished, no acute distress, non-toxic appearance. [] HENT: Normocephalic, atraumatic, bilateral external ears normal, oropharynx moist, no oral exudates, nose normal. [] Eyes: PERRLA, EOMI, conjunctiva normal, no discharge. [] Neck: Normal range of motion, no tenderness, supple, no stridor. [] Cardiovascular:Heart rate regular rhythm, no murmur [] Lungs & Thorax: Bilateral breath sounds clear to auscultation [] Abdomen: Bowel sounds normal, soft, no tenderness, no masses, no pulsatile masses. [] Skin: Warm, dry, no erythema, no rash. [] Back: No tenderness, no CVA tenderness. [] Extremities: No tenderness, no cyanosis, no clubbing, ROM intact, no edema. [] Neurologic: Alert and oriented X 3, normal motor function, normal sensory function, no focal deficits noted. Cranial nerves II through XII intact Psychologic: Affect normal, judgement normal, mood normal. [] Current Patient Data Vital Signs Vital Signs Date Time Temp Pulse Resp B/P (MAP) Pulse Ox O2 Delivery O2 Flow Rate FiO2 07/08/18 16:45 97.7 57 18 145/82 (103) 97 Room Air 97.7 EKG EKG [] Radiology/Procedures Radiology/Procedures [] Course & Med Decision Making Course & Med Decision Making Pertinent Labs and Imaging studies reviewed. (See chart for details) This is a 53-year-old female patient presenting to the ED today with posterior head pain after falling and hitting the back of his head on a concrete wall for [address] of the head is negative for any acute findings. Patient is neurologically intact. Patient was discharged to home. Instructed to take over- the-counter pain relievers as needed. Follow-up with primary care doctor in 1-2 weeks as needed. Dragon Disclaimer Dragon Disclaimer This electronic medical record was generated, in whole or in part, using a voice recognition dictation system. Departure Departure Impression: Primary Impression: Fall down stairs Additional Impression: Closed head injury Disposition: 01 HOME, SELF-CARE Condition: STABLE Referrals: DARWIN SHOOK MD (PCP) follow up in 1 week Patient Instructions: Fall Prevention and Home Safety, [id number], Head Injury, Adult Additional Instructions: You were evaluated in the emergency room for head injury. Your CT of the head is negative. You can ice the affected area. Take Tylenol as needed for pain. Follow-up with your doctor in 1-2 weeks. Problem Qualifiers Primary Impression: Fall down stairs Encounter type: initial encounter Qualified Codes: W10.8XXA - Fall (on) ( from) other stairs and steps, initial encounter Additional Impression: Closed head injury Encounter type: initial encounter Qualified Codes: S09.90XA - Unspecified injury of head, initial encounter RUPESH BREWER APRN Jul 08, 2018 18:12
== END 2018-07-08 18:17 | disposition home or self-care (01) ==
LOC: ER 15:09
DX: S09.8XXA Other specified injuries of head, initial encounter (principal); I10 Essential (primary) hypertension; W10.9XXA Fall (on) (from) unspecified stairs and steps, initial encounter; Y93.89 Activity, other specified; Y92.89 Other specified places as the place of occurrence of the external cause; Y99.8 Other external cause status
CPT/HCPCS: 70450; 99284-25

== ENCOUNTER 2018-12-15 04:57 | Emergency (ER) | payer OTHER, BC ==
[~2018-12-15] VITALS: Ht 182.9 cm; Wt 99.8 kg
[2018-12-15 05:00] VITALS: BP 170/92
[2018-12-15] MEDS ORDERED: BUTA1TAB23 PO (05:31)
--- NOTE | 2018-12-15 05:32 | PHYS DOC ---
Past Medical History Past Medical History: GERD, Hypertension Past Surgical History: Other Additional Past Surgical Histo: L SHOULDER Additional Information: Nonsmoker Alcohol Use: Occasionally Drug Use: None Adult General Chief Complaint Chief Complaint: HEAD INJURY/TRAUMA HPI HPI 53-year-old male presents with report of mechanical slip and fall yesterday striking his right forehead on a metal cart. Patient reports now has a constant headache with throbbing. Patient reports pain is 10 out of 10. Patient denies any loss of consciousness. Denies neck pain. Denies nausea or vomiting. Denies use of blood thinners. Review of Systems Review of Systems Constitutional: Denies fever or chills Eyes: Denies redness or eye pain HENT: Denies nasal congestion or sore throat Respiratory: Denies cough or shortness of breath Cardiovascular: Denies chest pain or palpitations GI: Denies abdominal pain, nausea, or vomiting : Denies dysuria or hematuria Musculoskeletal: Denies back pain or neck pain Integument: Denies rash or skin lesions; denies laceration; reports contusion Neurologic: Reports headache; denies focal weakness or sensory changes Complete systems were reviewed and found to be within normal limits, except as documented in this note. Current Medications Current Medications Current Medications Medications (Trade) Dose Ordered Sig/Tree Start Time Stop Time Status Last Admin Dose Admin Acetaminophen/ Butalbital/ Caffeine (Fioricet) 1 tab 1X ONCE 12/15/18 06:00 12/15/18 06:01 DC 12/15/18 06:03 1 TAB Ketorolac Tromethamine (Toradol 30mg Vial) 30 mg 1X ONCE 12/15/18 06:00 12/15/18 06:01 DC 12/15/18 06:03 30 MG Allergies Allergies Allergies Coded Allergies Type Severity Reaction Last Updated Verified No Known Drug Allergies 11/17/16 No Physical Exam Physical Exam Constitutional: Well developed, well nourished, no acute distress, non-toxic appearance HENT: Normocephalic, oropharynx moist, TMs clear, no signs of skull fracture Eyes: PERRL, EOMI, conjunctiva normal, no discharge, no nystagmus Neck: Normal range of motion, no midline tenderness, supple Cardiovascular: Heart rate normal, regular rhythm Lungs & Thorax: Bilateral breath sounds clear to auscultation, no wheezing Skin: Warm, dry, no erythema, no rash Extremities: No tenderness, ROM intact, no edema Neurologic: Alert and oriented X 3, normal motor function, normal sensory function, no focal deficits noted, speech normal Psychologic: Affect normal, judgement normal, mood normal Current Patient Data Vital Signs Vital Signs Date Time Temp Pulse Resp B/P (MAP) Pulse Ox O2 Delivery O2 Flow Rate FiO2 12/15/18 05:00 98.1 73 17 170/92 (118) 95 Room Air 98.1 EKG EKG [] Radiology/Procedures Radiology/Procedures [] Course & Med Decision Making Course & Med Decision Making Neurologically intact male presents with report of head contusion yesterday without loss of consciousness. Denies use of blood thinners. Physical exam without signs of skull fracture. Patient is neurologically intact. No midline cervical spine tenderness appreciated. Symptomatic treatment provided with interval improvement. Patient stable for discharge with outpatient follow-up with PCP. Discussed findings and plan with patient, who acknowledges understanding and agreement. Dragon Disclaimer Dragon Disclaimer This electronic medical record was generated, in whole or in part, using a voice recognition dictation system. Departure Departure Impression: Primary Impression: Head contusion Disposition: 01 HOME, SELF-CARE Condition: STABLE Referrals: DARWIN SHOOK MD (PCP) Patient Instructions: Facial or Scalp Contusion, [id number], Head Injury, Adult, [id number] Scripts Butalb/Acetaminophen/Caffeine ([id number] [id number]) 1 Each Tablet 1 EACH PO Q6HRS PRN for HEADACHE, #14 TAB Prov: URBAN SEYMOUR DO 12/15/18 Problem Qualifiers Primary Impression: Head contusion Encounter type: initial encounter Contusion of head detail: unspecified part of head Qualified Codes: S00.93XA - Contusion of unspecified part of head, initial encounter URBAN SEYMOUR DO Dec 15, 2018 05:32
[2018-12-15] MEDS ORDERED: BUTALB/APAP/CAFEIN 50/325/40MG TABLET. PO ONE (06:00)
[2018-12-15] MEDS ORDERED: KETOROLAC 30 MG/ML VIAL. IM ONE (06:00)
== END 2018-12-15 06:00 | disposition home or self-care (01) ==
LOC: ER 04:57
DX: S00.93XA Contusion of unspecified part of head, initial encounter (principal); I10 Essential (primary) hypertension; K21.9 Gastro-esophageal reflux disease without esophagitis; W18.09XA Striking against other object with subsequent fall, initial encounter; Y93.89 Activity, other specified; Y92.89 Other specified places as the place of occurrence of the external cause; Y99.8 Other external cause status
CPT/HCPCS: 96372; 99284; J1885

== ENCOUNTER 2021-02-02 11:50 | Emergency (ER) | payer OTHER ==
[~2021-02-02] VITALS: Ht 182.9 cm; Wt 57.0 kg
[~2021-02-02 11:50] MED LIST changes: +AMLO-186 PO; -AMLO5TAB10 PO; +BUTA1TAB23 PO
--- NOTE | 2021-02-02 12:18 | PHYS DOC ---
Past Medical History Past Medical History: GERD, Hypertension Past Surgical History: Other Additional Past Surgical Histo: L SHOULDER Smoking Status: Never Smoker Alcohol Use: Occasionally Drug Use: None General Adult EDM: Chief Complaint: COUGH HPI: HPI: Patient is a 55 year old male with history of hypertension, acid reflux, who presents to the ED today requesting a chest x-ray. Patient states he was diagnosed with COVID-19 in December. He states he still has a cough and congestion. Patient denies any fever. He states he is trying to see if he is medically "cleared" so he can get his Covid shot. He states his sense of smell and taste is not all the way back. Review of Systems: Review of Systems: Constitutional: Denies fever or chills. [] Eyes: Denies change in visual acuity. [] HENT: Reports nasal congestion, denies sore throat. [] Respiratory: Reports cough, denies shortness of breath. [] Cardiovascular: Denies chest pain or edema. [] GI: Denies abdominal pain, nausea, vomiting, bloody stools or diarrhea. [] : Denies dysuria. [] Musculoskeletal: Denies back pain or joint pain. [] Integument: Denies rash. [] Neurologic: Denies headache, focal weakness or sensory changes. [] [] Psychiatric: Denies depression or anxiety. [] Heart Score: C/O Chest Pain: N/A Risk Factors: Risk Factors: DM, Current or recent (<one month) smoker, HTN, HLP, family history of CAD, obesity. Risk Scores: Score 0 - 3: 2.5% MACE over next 6 weeks - Discharge Home Score 4 - 6: 20.3% MACE over next 6 weeks - Admit for Clinical Observation Score 7 - 10: 72.7% MACE over next 6 weeks - Early Invasive Strategies Allergies: Allergies: Allergies Coded Allergies Type Severity Reaction Last Updated Verified No Known Drug Allergies 11/17/16 No Physical Exam: PE: Constitutional: Well developed, well nourished, no acute distress, non-toxic appearance. [] HENT: Normocephalic, atraumatic, bilateral external ears normal, oropharynx moist, no oral exudates, nose normal. [] Eyes: PERRLA, EOMI, conjunctiva normal, no discharge. [] Neck: Normal range of motion, no tenderness, supple, no stridor. [] Cardiovascular:Heart rate regular rhythm, no murmur [] Lungs & Thorax: Bilateral breath sounds clear to auscultation [] Abdomen: Bowel sounds normal, soft, no tenderness, no masses, no pulsatile masses. [] Skin: Warm, dry, no erythema, no rash. [] Back: No tenderness, no CVA tenderness. [] Extremities: No tenderness, no cyanosis, no clubbing, ROM intact, no edema. [] Neurologic: Alert and oriented X 3, normal motor function, normal sensory function, no focal deficits noted. [] Psychologic: Affect normal, judgement normal, mood normal. [] EKG: EKG: [] Radiology/Procedures: Radiology/Procedures: []PROCEDURE: CHEST AP ONLY EXAM: CHEST ONE VIEW. HISTORY: Cough, chest pain. COMPARISON: 11/17/2016. FINDINGS: A frontal view of the chest is obtained. There are no confluent infiltrates. There is no pneumothorax or pleural ef fusion. The heart is not enlarged. IMPRESSION: 1. No confluent infiltrates. Electronically signed by: Yrn Lozano MD (02/02/2021 12:35 PM) [id number] DICTATED and SIGNED BY: LEVI LOZANO MD DATE: 02/02/21 [id number] 0 Course & Med Decision Making: Course & Med Decision Making Pertinent Labs and Imaging studies reviewed. (See chart for details) This is a 55-year-old male patient presenting to the ED today complaining of a cough and nasal congestion that has had since December when he was diagnosed with COVID-19. He is requesting a chest x-ray to make sure he is cleared so he can get a Covid vaccine. Chest x-ray is negative for any acute findings. Blood pressure was 181/100 with a heart rate in the 60s. He states he has a history of hypertension. He states he took his blood pressure medicine earlier this morning. He states his blood pressure was in the 140s over 80s at urgent care prior to coming to the ED. He requested not to take any more blood pressure medicine in the ED. He states he will recheck his blood pressure at home and consult with his own physician. He was provided return precautions and discharged in stable condition Maisha Disclaimer: Maisha Disclaimer: This electronic medical record was generated, in whole or in part, using a voice recognition dictation system. Departure Departure Impression: Primary Impression: Cough Additional Impression: Elevated blood pressure reading Disposition: HOME / SELF CARE / HOMELESS Condition: STABLE Referrals: DARWIN SHOOK MD (PCP) follow up in one week with your doctor Patient Instructions: Cough, Adult, [id number], Hypertension Additional Instructions: Your chest x-ray in the emergency room was normal. Your blood pressure is running high 181/100. Ensure you are taking your medicine. Please contact your primary care doctor and let them know your blood pressure is running high. Come back to the ED at any point symptoms worsen. RUPESH BREWER NARROW GAUGE OPERATOR Feb 02, 2021 12:18
[2021-02-02 12:21] VITALS: BP 181/100
--- NOTE | 2021-02-02 12:37 | RAD ---
EXAM: CHEST ONE VIEW. HISTORY: Cough, chest pain. COMPARISON: 11/17/2016. FINDINGS: A frontal view of the chest is obtained. There are no confluent infiltrates. There is no pneumothorax or pleural effusion. The heart is not en larged. IMPRESSION: 1. No confluent infiltrates. Electronically signed by: Yrn Lozano MD (02/02/2021 12:35 PM) [id number]
== END 2021-02-02 13:20 | disposition home or self-care (01) ==
LOC: ER 11:50
DX: R05.9 Cough, unspecified (principal); I10 Essential (primary) hypertension; K21.9 Gastro-esophageal reflux disease without esophagitis
CPT/HCPCS: 71045; 99283